=== PATIENT | male | born 1980 ===

== ENCOUNTER 2020-12-03 17:58 | Emergency (ER) | payer SELFPAY ==
[~2020-12-03] VITALS: Ht 172.7 cm; Wt 68.0 kg
--- NOTE | 2020-12-03 18:04 | NUR ---
DR Kearney at the bedside for MSE.
[2020-12-03] MEDS ORDERED: IV NORMAL SALINE 1000 ML BAG IV ONE (18:15)
--- NOTE | 2020-12-03 18:36 | NUR ---
PT BACK FROM CT SCAN, DR MILLER AT BEDSIDE FOR EVAL.
[2020-12-03 18:42] LABS: CREATININE 0.7 mg/dL (0.6-1.3); POTASSIUM 3.4 mmol/L (3.5-5.1)
[2020-12-03 18:44] LABS: BASOPHILS # (AUTO) 0.1 K/uL (0.0-8.0); BASOPHILS % (AUTO) 0.9 % (0.0-2.0); EOSINOPHILS # (AUTO) 0.2 K/uL (0.0-0.7); EOSINOPHILS % (AUTO) 2.6 % (0.0-7.0); HEMATOCRIT 36.8 % (36.7-47.1); HEMOGLOBIN 12.3 g/dL (12.5-16.3); LYMPHOCYTES # (AUTO) 2.1 K/uL (20.0-40.0); LYMPHOCYTES % (AUTO) 26.2 % (20.5-51.5); MEAN CORPUSCULAR HEMOGLOBIN 29.3 uug (23.8-33.4); MEAN CORPUSCULAR HGB CONC 33 g/dL (32.5-36.3); MEAN CORPUSCULAR VOLUME 87.7 fL (73.0-96.2); MONOCYTES # (AUTO) 0.8 K/uL (2.0-10.0); MONOCYTES % (AUTO) 10.6 % (0.0-11.0); NEUTROPHILS # (AUTO) 4.7 K/uL (1.8-8.9); NEUTROPHILS % (AUTO) 59.7 % (38.5-71.5); PLATELET COUNT (AUTO) 232 K/uL (152-348); WHITE BLOOD COUNT (AUTO) 7.9 K/uL (3.6-10.2)
[2020-12-03 18:52] LABS: BILIRUBIN,DIRECT 0.1 mg/dL (0.0-0.2); BILIRUBIN,TOTAL 0.1 mg/dL (0.2-1.0); TOTAL PROTEIN, SERUM 7.3 g/dL (6.4-8.2)
[2020-12-03] MEDS ORDERED: THIAMINE HCL INJ 100 MG in IV DEXTROSE 5% 50 ML IV ONE (19:15)
[2020-12-03] MEDS ORDERED: FOLIC ACID 1 MG in IV DEXTROSE 5% 50 ML IV ONE (19:15)
--- NOTE | 2020-12-03 19:20 | NUR ---
PATIENT IS ASLEEP AT THIS TIME, STRAIGHT CATH DONE, URINE SENT TO LAB.
[2020-12-03 19:26] LABS: *BILIRUBIN,URIN NEGATIVE (NEGATIVE); *BLOOD, URINE NEGATIVE (NEGATIVE); *CLARITY,URINE CLEAR (CLEAR); *COLOR,URINE LIGHT YELLOW (YELLOW); *KETONES,URINE NEGATIVE (NEGATIVE); *UROBILINOGEN,URINE 0.2 E.U./dl (NORMAL); LEUKOCYTE ESTERASE ,URINE NEGATIVE (NEGATIVE); NITRITE, URINE NEGATIVE (NEGATIVE); PH,URINE 6.5 (5.0-8.0); UGLUCOSE NEGATIVE (NEGATIVE)
[2020-12-03] MEDS ORDERED: FOLIC ACID 5 MG/ML VIAL IV ONE (19:32)
[2020-12-03 19:36] LABS: *AMPHETAMINE, URINE NEGATIVE (NEGATIVE); *CANNABINOID, URINE POSITIVE (NEGATIVE); *COCCAINE, URINE NEGATIVE (NEGATIVE); *OPIATE, URINE NEGATIVE (NEGATIVE); *PHENCYCLIDINE SCREEN,URINE NEGATIVE (NEGATIVE)
--- NOTE | 2020-12-03 21:00 | NUR ---
PATIENT ASLEEP, RESPIRATINOS EVEN AND UNLABOERD.
--- NOTE | 2020-12-03 22:00 | NUR ---
Patient asleep at this time, respirations even and unlabored.
--- NOTE | 2020-12-03 23:51 | NUR ---
Patient eloped, patient ran out off ER, staff attempted to stop patient from leaving but was unsuccesful. Patient had an IV in his left wrist, which was still in palce when patient eloped. [facility] was notified.
--- NOTE | 2020-12-04 00:20 | NUR ---
Called [facility] line spoke to Log Sorting Supervisor [phone] and informed her that patient eloped from ER with Hep Lock on. Log Sorting Supervisor will send unit.
== END 2020-12-04 01:47 | disposition left against medical advice (07) ==
LOC: ER 17:58
DX: G92 Toxic encephalopathy (principal); T51.0X1A Toxic effect of ethanol, accidental (unintentional), initial encounter; Y92.480 Sidewalk as the place of occurrence of the external cause; R40.2342 Coma scale, best motor response, flexion withdrawal, at arrival to emergency department; R40.2112 Coma scale, eyes open, never, at arrival to emergency department; R40.2212 Coma scale, best verbal response, none, at arrival to emergency department
CPT/HCPCS: 36415; 70450; 71045; 80048; 80076; 80307; 80320; 81003; 82140; 82550; 83605; 83690; 84484; 85025; 85730; 87040 ×2; 93005; 96361; 96365; 96366; 99285; J3411; J3490; J7060 ×2; 70030-TC; A4663; C1758; G0480; J7030